=== PATIENT | female | born 1975 | race Hispanic/Latino ===

== ENCOUNTER 2020-10-23 15:44 | Emergency (ER) | payer SELFPAY ==
[2020-10-23 16:40] LABS: BASOPHILS % (AUTO) 0.5 % (0.0-5.0); EOSINOPHILS % (AUTO) 0.9 % (0.0-8.0); HEMATOCRIT 42.1 % (36-48); LYMPHOCYTES % (AUTO) 21.6 % (21.0-51.0); MEAN CORPUSCULAR HEMOGLOBIN 30.2 pg (27.0-33.0); MEAN CORPUSCULAR HGB CONC 33.3 g/dL (32.0-36.0); MEAN CORPUSCULAR VOLUME 90.7 fL (79-99); NEUTROPHILS % (AUTO) 71.6 % (40.0-77.0); PLATELET COUNT (AUTO) 308 K/uL (130-400); RED BLOOD CELL COUNT(AUTO) 4.64 MIL/uL (4.00-5.50); WHITE BLOOD COUNT (AUTO) 12.6 K/uL (4.8-10.8)
[2020-10-23 16:47] LABS: CREATININE 1.2 mg/dL (0.5-1.5); POTASSIUM 3.5 mmol/L (3.5-5.1)
[2020-10-23 16:52] LABS: ALBUMIN 3.8 g/dL (3.5-5.0); BILIRUBIN,TOTAL 0.3 mg/dL (0.2-1.0); TOTAL PROTEIN, SERUM 7.8 g/dL (6.0-8.3)
[2020-10-23 17:06] LABS: APPEARANCE,URINE Clear (CLEAR); BILIRUBIN,URINE Negative (NEGATIVE); COLOR,URINE Yellow (YELLOW); GLUCOSE, URINE (UA) Negative (NEGATIVE); KETONES,URINE 15 mg/dL (NEGATIVE); LEUKOCYTE ESTERASE ,URINE Trace (NEGATIVE); NITRATE,URINE Negative (NEGATIVE); OCCULT BLOOD,URINE Negative (NEGATIVE); PROTEIN,URINE Negative (NEGATIVE)
[2020-10-23] MEDS ORDERED: ONDANSETRON HCL 4 MG/2 ML VIAL ONE (17:27)
[2020-10-23] MEDS ORDERED: SODIUM CHLORIDE 0.9% 50 ML IV ONE (17:28)
[2020-10-23] MEDS ORDERED: MORPHINE SULFATE 2 MG/ML 1ML SYG ONE (17:28)
[2020-10-23] MEDS ORDERED: CLINDAMYCIN 600 MG/D5% WATER 50 ML IV ONE (17:28)
[2020-10-23 17:31] LABS: RBC,URINE 0-1 /HPF (0-1)
[2020-10-23 17:32] LABS: BACTERIA,URINE Moderate /HPF (None Seen); SQUAMOUS EPITHELIAL CELL,UR Few /HPF (0-2)
[2020-10-23] MEDS ORDERED: ASPIRIN 325 MG TABLET ONE (19:05)
== END 2020-10-23 19:19 | disposition home or self-care (01) ==
LOC: EDH 15:44
DX: R07.89 Other chest pain (principal); L03.116 Cellulitis of left lower limb; Z98.890 Other specified postprocedural states; Z72.0 Tobacco use
CPT/HCPCS: 36415; 73610; 80053; 81001; 81025; 83605; 84484; 85025; 87040 ×2; 87077; 87088; 87186; 93005; 96365; 96375; 99285; J2405; J3490

== ENCOUNTER 2023-03-14 13:54 | Emergency (ER) | payer BC, SELFPAY ==
[~2023-03-14] VITALS: Ht 157.5 cm; Wt 74.8 kg
[2023-03-14 13:58] VITALS: BP 124/74; PULSE 76; RESP 16
[2023-03-14] MEDS ORDERED: IBUPROFEN 600 MG TABLET PO ONE (14:30)
[2023-03-14] MEDS ORDERED: ONDANSETRON ODT 4MG TAB SL ONE (14:30)
[2023-03-14] MEDS ORDERED: PREDNISONE 20 MG TABLET PO ONE (14:30)
[2023-03-14] MEDS ORDERED: HYDROCODONE/ACETAMINOPHEN 5/325 MG TAB PO ONE (14:30)
== END 2023-03-14 16:00 | disposition home or self-care (01) ==
LOC: EDH 13:54
DX: M77.32 Calcaneal spur, left foot (principal)
CPT/HCPCS: 73630

== ENCOUNTER 2024-08-17 17:20 | Emergency (ER) | payer BC, OTHER ==
[~2024-08-17] VITALS: Ht 157.5 cm; Wt 59.0 kg
--- NOTE | 2024-08-17 17:41 | ERN ---
ED Note History of Present Illness Stated Complaint: FEVER Chief Complaint: Fever Time Seen by MD: 17:21 Time Seen by Midlevel: 17:21 Dictation: The patient is a 48-year-old female with a history of who presents to the emergency department with complaints of fever, productive cough, bilateral ear pain, sore throat, chest pain onset three days ago. Patient denies any nausea, vomiting, diarrhea, abdominal pain, urinary discomfort. Reports chest pain worse with palpation. Reports occasional shortness of breath Allergies: Coded Allergies: No Known Allergies (Unverified Allergy, Unknown, 10/23/20) Past Medical History Past Medical History: No Pertinent History Surgical History: Family History: Negative Social History: Negative, Lives with family RN Note Reviewed/Agreed w/PFSH: Yes Review of System Dictation Constitutional: Negative for,chills, and weight loss positive for fever Eyes: Negative for injury, pain,redness, and discharge ENT: Negative for injury,pain or swelling Cardiovascular: Negative for palpitations, and edema positive for chest pain Respiratory: Negative for shortness of breath, and wheezing, positive for cough Abdomen/GI: Negative for abdominal pain, nausea, vomiting, diarrhea, and constipation Back: Negative for injury and pain : Negative for injury, bleeding and discharge MS/Extremity: Negative for injury and deformity Skin: Negative for rash, and discoloration Neuro: Negative for headache, weakness, numbness, tingling, and seizure Psych: Negative for suicide ideation, homicidal ideation, and hallucinations Initial Vital Sign VS Vital Signs Date Time Temp Pulse Resp B/P (MAP) Pulse Ox O2 Delivery O2 Flow Rate FiO2 08/17/24 17:20 102.9 115 22 137/98 98 Room Air 0 08/17/24 18:41 21 Physical Exam Dictation Vital Signs reviewed General Appearance: Alert, oriented x 3, no acute distress, well developed, nourished. Head and Face: non-traumatic. Eyes: PERRL, pink conjunctivas, eyelid no trauma, anterior chamber with arcus senilis. Ears: Pinnas intact and no signs of trauma, erythema to left ear canal clear and no discharge right tympanic membrane unable to be visualized due to excessive cerumen Nose: No discharge, no bleeding. Oropharynx: Mouth normal, tongue pink. pharynx clear,+ erythema, tonsils no exudates, no abscesses noted, mucous membrane moist Neck: Supple, non-tender, no thyromegaly, no masses, no JVD, no bruits Breast:Deferred Chest:+ tenderness, no crepitus, no paradoxical movement, no retractions Lungs:Clear, well-ventilated, symmetric, no rales, no wheezing, no rhonchi, no stridor, good breath sounds bilaterally Heart: Regular rate, regular rhythm, no murmur, no gallops Vascular: no peripheral edema, Abdomen: Soft, positive bowel sounds, nondistended, no guarding, nontender, no rebound, no masses no hepatomegaly, no splenomegaly, no Rivera's sign, no hernias. Rectal: Deferred Genital: Deferred Neurological: Normal speech, motor function intact, sensory function intact Musculoskeletal: Neck nontender, full range of motion, back nontender, full range of motion, Extremities: nontender, full range of motion Skin: Color pink, dry, no turgor, no rash, no lacerations, no abrasions, no contusions. Lymphatic: Deferred Results (Laboratory/Radiology) Laboratory/Radiology Laboratory Tests Test 08/17/24 17:28 08/17/24 17:40 08/17/24 20:13 Influenza Type A Antigen Positive For Type A Influenza Type B Antigen Negative For Type B SARS-CoV-2 Antigen (Rapid) PRESUMPTIVE NEGATIVE Group A Streptococcus Rapid negative (NEGATIVE) White Blood Count 10.7 K/uL (4.8-10.8) Red Blood Count 4.44 MIL/uL (4.00-5.50) Hemoglobin 14.0 g/dL (12.0-16.0) Hematocrit 40.5 % (36-48) Mean Corpuscular Volume 91.2 fL (79-99) Mean Corpuscular Hemoglobin 31.5 pg (27.0-33.0) Mean Corpuscular Hemoglobin Concent 34.6 g/dL (32.0-36.0) Red Cell Distribution Width 13.6 % (11.0-15.5) Platelet Count 248 K/uL (130-400) Mean Platelet Volume 9.8 fL (7.5-10.5) Immature Granulocyte % (Auto) 0.4 % (0-1) Neutrophils (%) (Auto) 85.5 % (40.0-77.0) H Lymphocytes (%) (Auto) 8.6 % (21.0-51.0) L Monocytes (%) (Auto) 5.3 % (3.0-13.0) Eosinophils (%) (Auto) 0.0 % (0.0-8.0) Basophils (%) (Auto) 0.2 % (0.0-5.0) Neutrophils # (Auto) 9.1 K/uL (1.8-7.7) H Lymphocytes # (Auto) 0.9 K/uL (1.0-4.8) L Monocytes # (Auto) 0.6 K/uL (0.1-1.0) Eosinophils # (Auto) 0.00 K/uL (0.00-0.70) Basophils # (Auto) 0.02 K/uL (0.00-0.20) Absolute Immature Granulocyte (auto 0.04 K/uL (0-1) Nucleated Red Blood Cells 0.0 % (0.0-0.19) White Cell Morphology Comment See comments Sodium Level 130 mmol/L (136-145) L Potassium Level 3.4 mmol/L (3.5-5.1) L Chloride Level 99 mmol/L (101-111) L Carbon Dioxide Level 23 mmol/L (21-32) Blood Urea Nitrogen 8 mg/dL (7-18) Creatinine 0.8 mg/dL (0.5-1.0) Glomerular Filtration Rate Calc 91 mL/min (>90) Random Glucose 116 mg/dL (70-105) H Lactic Acid Level 1.4 mmol/L (0.8-2.5) Total Calcium 8.2 mg/dL (8.5-10.1) L Total Creatine Kinase 47 U/L (21-232) Troponin I High Sensitivity 6 ng/L (4-50) Serum Test, Qualitative NEGATIVE (NEGATIVE) Urine Color COLORLESS (YELLOW) Urine Appearance CLEAR (CLEAR) Urine pH 5.5 (5.0-8.0) Urine Specific [place] 1.006 (1.001-1.031) Urine Protein NEGATIVE mg/dL (NEGATIVE) Urine Glucose (UA) NEGATIVE mg/dL (NEGATIVE) Urine Ketones NEGATIVE mg/dL (NEGATIVE) Urine Occult Blood SMALL (NEGATIVE) H Urine Nitrate NEGATIVE (NEGATIVE) Urine Bilirubin NEGATIVE mg/dL (NEGATIVE) Urine Urobilinogen 0.2 mg/dL (0.2-1.0) Urine Leukocyte Esterase NEGATIVE Anthony/uL Urine RBC None /HPF (0-1) Urine WBC None /HPF (0-1) Urine Squamous Epithelial Cells MOD /HPF (0-2) Urine Bacteria None /HPF (None Seen) REASON: cp 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 No acute pulmonary infiltrates is seen. The heart is normal in size. Prominent interstitial markings are seen. Degenerative changes are seen. No evidence of aortic calcification is seen. IMPRESSION: 1. No acute pulmonary infiltrate is seen. Labs Reviewed?: Yes EKG Comment: EKG 08/17/2024 1723 ventricular rate 93, regular rate and rhythm, sinus rhythm, no STEMI. ED Course ED Course Orders Procedure Category Date Status Time Iv Insertion CPOE 08/17/24 Transmitted 17:21 Pulse Ox(Continuous) RT 08/17/24 Transmitted 17:21 Vital Signs Per CPOE 08/17/24 Transmitted Routine 17:21 12 Lead Ekg Tracing- EKG 08/17/24 Logged Technical 17:21 Cbc With Differential LAB 08/17/24 Complete 17:21 Blood Cult GIA 08/17/24 In Process 17:21 Urinalysis Profile LAB 08/17/24 Complete 17:21 Culture Urine GIA 08/17/24 In Process 17:21 Creatine Kinase, Total LAB 08/17/24 Complete 17:21 Troponin I High LAB 08/17/24 Complete Sensitivity 17:21 Lactic Acid LAB 08/17/24 Complete 17:21 Basic Metabolic Panel LAB 08/17/24 Complete 17:21 Influenza Type A & B, LAB 08/17/24 Complete Rapid 17:33 Covid19 (Sars Antigen LAB 08/17/24 Complete Rapid) 17:33 Rapid (Group A Strep) LAB 08/17/24 Complete 17:33 Chest 1vw RAD 08/17/24 Resulted 17:33 Testing, LAB 08/17/24 Complete Serum Hcg 17:33 Acetaminophen 500mg PHA 08/17/24 Complete Tab (Tylenol 500mg T 18:00 0.9%Nacl 1000ml (Ns PHA 08/17/24 Complete 1000ml) 18:00 Ceftriaxone 1g Vial PHA 08/17/24 Complete (Rocephine 1g Inj) 18:00 Potassium Bicarb/Cit PHA 08/17/24 Complete Ac 25meq (K-Lyte Ta 19:00 Current Medications Medications (Trade) Dose Ordered Sig/Anibal Route PRN Reason Start Time Stop Time Status Last Admin Dose Admin Acetaminophen (TYLenol 500MG TAB) 1,000 mg ONCE ONCE PO 08/17/24 18:00 08/17/24 18:01 DC 08/17/24 17:46 Ceftriaxone Sodium (ROCEphine 1G INJ) 1 gm ONCE ONCE IVPB 08/17/24 18:00 08/17/24 18:01 DC 08/17/24 17:46 Potassium Bicarbonate (K-Lyte Tablet Eff 25 Meq Tablet.eff) 25 meq ONCE ONCE PO 08/17/24 19:00 08/17/24 19:01 DC 08/17/24 19:49 Sodium Chloride 1,000 ml @ 0 mls/hr ONCE ONCE IV 08/17/24 18:00 08/17/24 18:01 DC 08/17/24 17:45 Vital Signs Date Time Temp Pulse Resp B/P (MAP) Pulse Ox O2 Delivery O2 Flow Rate FiO2 08/17/24 19:38 99.1 86 26 125/68 96 Room Air* 0 21 08/17/24 18:41 101.1 89 18 129/72 97 Room Air* 0 21 08/17/24 17:46 102.9 08/17/24 17:20 102.9 115 22 137/98 98 Room Air 0 HEART Score Response (Comments) Value History: Low suspicion (0) 0 EKG: Normal 0 Age: 45-65yrs (+1) 1 Risk Factors: No known risk factors (0) 0 Initial Troponin: Normal limit (0) 0 Total 1 Medical Decision Making MDM The patient is a 48-year-old female with a history of who presents to the emergency department with complaints of fever, productive cough, bilateral ear pain, sore throat, chest pain onset three days ago. Patient denies any nausea, vomiting, diarrhea, abdominal pain, urinary discomfort. Reports chest pain worse with palpation. Reports occasional shortness of breath CBC showed no leukocytosis, no anemia, chemistry showed mild hyponatremia, hypokalemia, hypochloremia, negative troponin, chest x-ray unremarkable. Patient did test positive for flu A. But symptoms have been longer than48 hours. Patient with no risk factors. Patient at this time denies anymore pain. Pain reproducible with palpation not likely cardiac in more likely related to her cough. Patient in no acute distress will be discharged to follow up with PCP. Differential diagnosis: ACS, pneumonia, pneumothorax, upper respiratory infect ion, pharyngitis Need for hospitalization: Patient does not meet criteria for hospitalization. There are no social concerns with this patient. DX & DISP Disposition: Discharge Departure Impression: Primary Impression: Influenza A Additional Impressions: Mild dehydration, Hypokalemia, Hyponatremia, Hypochloremia Condition: Stable Scripts Guaifenesin/Dextromethorphan (Guaifenesin Dm Syrup) 100 Mg-10 Mg/5 Ml Syrup 5 ML PO Q4H for cough and congestion for 4 Days, #120 ML 0 Refills Prov: CHRISTIE ELIAS 08/17/24 Additional Instructions: Please follow up with your PCP in 1-2 days. You can take Tylenol for fevers. FOLLOW-UP WITH PRIMARY CARE PROVIDER IN 1 TO 2 DAYS. TAKE MEDICATIONS DIRECTED HERE IN THE EMERGENCY ROOM. OKAY TO CONTINUE HOME MEDICATIONS UNLESS OTHERWISE DISCUSSED DURING YOUR VISIT IN THE EMERGENCY ROOM TODAY. RETURN TO YOUR NEAREST EMERGENCY ROOM IF SYMPTOMS WORSEN OR IF THERE IS NO IMPROVEMENT. CALL 911 IF YOU NEED IMMEDIATE ASSISTANCE. TAKE TYLENOL OR MOTRIN [id number] NEEDED AND IF NO CONTRAINDICATIONS ARE PRESENT. INCREASE ORAL HYDRATION. A WOUND CULTURE OR URINE CULTURE WAS ORDERED HERE IN THE EMERGENCY ROOM DEPARTMENT PLEASE FOLLOW-UP WITH PRIMARY CARE PROVIDER AND ADVISE THEM TO GET REPEAT PORTS FROM OUR FACILITY. IF YOU HAD ANY JOVON WRAP/SPLINTS THAT WERE APPLIED HERE, PLEASE DO NOT REMOVE THEM UNTIL YOU SEE YOUR PRIMARY CARE OR SPECIALTY. Referrals: PEDRO SINGH DO (PCP) Time of Disposition: 21:09 I have reviewed the case, and I agree with, Diagnosis and Plan CHRISTIE ELIAS Aug 17, 2024 17:41
[2024-08-17] MEDS: 0.9%NACL 1000ML 1,000 ML IV ONE (17:45)
[2024-08-17] MEDS: cefTRIAXone 1G VIAL IVPB ONE (17:46)
[2024-08-17] MEDS: acetaMINOPHEN 500 MG TABLET PO ONE (17:46)
[2024-08-17 17:51] LABS: BASOPHILS # (AUTO) 0.02 K/uL (0.00-0.20); BASOPHILS % (AUTO) 0.2 % (0.0-5.0); HEMATOCRIT 40.5 % (36-48); IMMATURE GRANULOCYTE ABSOLUTE 0.04 K/uL (0-1); LYMPHOCYTES # (AUTO) 0.9 K/uL (1.0-4.8); LYMPHOCYTES % (AUTO) 8.6 % (21.0-51.0); MEAN CORPUSCULAR HEMOGLOBIN 31.5 pg (27.0-33.0); MEAN CORPUSCULAR HGB CONC 34.6 g/dL (32.0-36.0); MEAN CORPUSCULAR VOLUME 91.2 fL (79-99); MONOCYTES # (AUTO) 0.6 K/uL (0.1-1.0); MONOCYTES % (AUTO) 5.3 % (3.0-13.0); NEUTROPHILS # (AUTO) 9.1 K/uL (1.8-7.7); NEUTROPHILS % (AUTO) 85.5 % (40.0-77.0); PLATELET COUNT (AUTO) 248 K/uL (130-400); RED BLOOD CELL COUNT(AUTO) 4.44 MIL/uL (4.00-5.50); RED CELL DISTRIBUTION WIDTH 13.6 % (11.0-15.5); WHITE BLOOD COUNT (AUTO) 10.7 K/uL (4.8-10.8)
[2024-08-17 18:02] LABS: RAPID GROUP A STREP negative (NEGATIVE)
[2024-08-17 18:12] LABS: COVID19 (SARS ANTIGEN RAPID) PRESUMPTIVE NEGATIVE (NEGATIVE); INFLUENZA TYPE B Negative For Type B (NEGATIVE)
[2024-08-17 18:13] LABS: CREATININE 0.8 mg/dL (0.5-1.0); POTASSIUM 3.4 mmol/L (3.5-5.1)
[2024-08-17 18:14] LABS: INFLUENZA TYPE A Positive For Type A (NEGATIVE)
--- NOTE | 2024-08-17 18:15 | HMCIMG ---
CHEST 1VW HISTORY: Chest pain COMPARISON: 11/08/2015 FINDINGS: A frontal projection of the chest was obtained. No acute pulmonary infiltrates is seen. The heart is normal in size. Prominent interstitial markings are seen. Degenerative changes are seen. No evidence of aortic calcification is seen. IMPRESSION: 1. No acute pulmonary infiltrate is seen.
[2024-08-17 19:38] VITALS: TEMP 99.2
[2024-08-17] MEDS: PoTASSium BIcarbonate/CIT AC 25 MEQ TABLET.EFF PO ONE (19:49)
[2024-08-17 20:00] VITALS: TEMP 99.2
[2024-08-17 20:42] LABS: APPEARANCE,URINE CLEAR (CLEAR); BILIRUBIN,URINE NEGATIVE (NEGATIVE); COLOR,URINE COLORLESS (YELLOW); GLUCOSE, URINE (UA) NEGATIVE (NEGATIVE); KETONES,URINE NEGATIVE (NEGATIVE); LEUKOCYTE ESTERASE ,URINE NEGATIVE Leu/uL (NEGATIVE); NITRATE,URINE NEGATIVE (NEGATIVE); OCCULT BLOOD,URINE SMALL (NEGATIVE); PH,URINE 5.5 (5.0-8.0); PROTEIN,URINE NEGATIVE (NEGATIVE); UROBILINOGEN,URINE 0.2 mg/dL (0.2-1.0)
[2024-08-17 20:44] LABS: ADD UA MICROSCOPIC YES
[2024-08-17 20:54] LABS: SQUAMOUS EPITHELIAL CELL,UR MOD /HPF (0-2)
[2024-08-17] MEDS ORDERED: GUAI5SYR PO (21:10)
[2024-08-17 21:18] VITALS: BP 113/70; PULSE 79; RESP 22; O2SAT 96
--- NOTE | 2024-08-18 05:18 | EKG ---
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
== END 2024-08-17 21:37 | disposition home or self-care (01) ==
LOC: EDH 17:20
DX: J10.1 Influenza due to other identified influenza virus with other respiratory manifestations (principal); E86.0 Dehydration; E87.6 Hypokalemia; E87.1 Hypo-osmolality and hyponatremia; E87.8 Other disorders of electrolyte and fluid balance, not elsewhere classified; Z20.822 Contact with and (suspected) exposure to COVID-19
CPT/HCPCS: 99285; 96365; 71045; 96366; 87426; 82550; 84484; 80048; 84703; 85025; 87040 ×2; 87086; 87880; 87804 ×2; 83605; 81001; 36415; 93005; J7030; J0696